=== PATIENT | female | born 1980 | race Caucasian/White ===

== ENCOUNTER 2016-09-05 11:46 | Emergency (ER) | payer OTHER ==
[~2016-09-05] VITALS: Ht 154.9 cm; Wt 66.0 kg
[2016-09-05] MEDS ORDERED: IBUP100T53 PO (12:12)
[2016-09-05 12:22] LABS: APPEARANCE,URINE CLOUDY (CLEAR); GLUCOSE, URINE (UA) NEGATIVE (NEGATIVE); KETONES,URINE NEGATIVE (NEGATIVE); LEUKOCYTE ESTERASE ,URINE SMALL (NEGATIVE); OCCULT BLOOD,URINE NEGATIVE (NEGATIVE); PROTEIN,URINE NEGATIVE (NEGATIVE)
[2016-09-05 12:25] LABS: ADD UA MICROSCOPIC YES
[2016-09-05 12:27] LABS: RBC,URINE None Seen /HPF (0-2)
[2016-09-05 12:28] LABS: SQUAMOUS EPITHELIAL CELL,UR Rare /LPF (None Seen)
[2016-09-05 12:38] LABS: BASOPHILS % (AUTO) 0.5 % (0.0-2.0); HEMATOCRIT 38.2 % (36-46); LYMPHOCYTES # (AUTO) 0.5 K/uL (1.0-4.8); LYMPHOCYTES % (AUTO) 8.1 % (22.0-44.0); MEAN CORPUSCULAR HEMOGLOBIN 30.8 pg (26.0-34.0); MEAN CORPUSCULAR VOLUME 91 fL (80-100); MONOCYTES # (AUTO) 0.5 K/uL (0.1-1.0); MONOCYTES % (AUTO) 8.6 % (2.0-9.0); NEUTROPHILS % (AUTO) 81.8 % (40.0-70.0); PLATELET COUNT (AUTO) 232 K/uL (150-450); RED BLOOD CELL COUNT(AUTO) 4.22 MIL/uL (4.00-5.20); RED CELL DISTRIBUTION WIDTH 13.1 % (11.5-14.5); WHITE BLOOD COUNT (AUTO) 6.1 K/uL (4.5-11.0)
[2016-09-05] MEDS ORDERED: ACETAMINOPHEN 500 MG TABLET PO ONE (12:45)
[2016-09-05] MEDS ORDERED: MORPHINE SULFATE 4 MG/ML SYRINGE IVP ONE (12:45)
[2016-09-05] MEDS ORDERED: SODIUM CHLORIDE 0.9% 1,000 ML IV ONE (12:45)
[2016-09-05 12:47] LABS: ANION GAP 10 mmol/L (8-16); CALCIUM, TOTAL 8.1 mg/dL (8.8-10.5); CARBON DIOXIDE 24 mmol/L (22-29); CHLORIDE 103 mmol/L (98-107); CREATININE 0.53 mg/dL (0.60-1.30); GLOMERULAR FILTR. RATE CALC > 60 mL/min (>60); POTASSIUM 3.4 mmol/L (3.5-5.1); SODIUM SERUM 137 mmol/L (136-145); UREA NITROGEN, BLOOD 8 mg/dL (7-18)
[2016-09-05 12:53] LABS: ALANINE AMINOTRANSFERASE 24 U/L (12-78); ALBUMIN 3.3 g/dL (3.4-5.0); ASPARTATE AMINOTRANSFERASE 13 U/L (15-37); BILIRUBIN,TOTAL 0.2 mg/dL (0.1-1.0); TOTAL PROTEIN, SERUM 6.8 g/dL (6.4-8.2)
[2016-09-05] MEDS ORDERED: ONDANSETRON HCL 4 MG/2 ML VIAL IVP ONE (13:00)
[2016-09-05] MEDS ORDERED: POTASSIUM CHLORIDE 20 MEQ ER TABLET PO ONE (13:15)
[2016-09-05 14:03] VITALS: BP 116/69
[2016-09-05 14:06] LABS: INFLUENZA TYPE B NEGATIVE FOR TYPE B (NEGATIVE)
[2016-09-05] MEDS ORDERED: KETOROLAC TROMETHAMINE 30 MG/ML VIAL IVP ONE (14:30)
== END 2016-09-05 15:32 | disposition home or self-care (01) ==
LOC: EMS 11:47
DX: B34.9 Viral infection, unspecified (principal); M54.9 Dorsalgia, unspecified
CPT/HCPCS: 36415; 80053; 81001; 84703; 85025; 87804; 96361; 96374; 96375; 99285; J1885; J2270; J2405; J7030

== ENCOUNTER 2017-01-16 12:51 | Emergency (ER) | payer OTHER ==
[~2017-01-16] VITALS: Ht 154.9 cm; Wt 68.6 kg
[~2017-01-16 12:51] MED LIST: IBUP100T53 PO
[2017-01-16] MEDS ORDERED: DEXAMETHASONE SOD PHOS 4 MG/ML 5 ML VIAL IM ONE (15:15)
[2017-01-16] MEDS ORDERED: DiphenhydrAMINE HCL 25 MG CAPSULE PO ONE (15:15)
[2017-01-16 16:26] VITALS: BP 127/86
[2017-01-17] MEDS ORDERED: DIPH25 PO (23:02)
== END 2017-01-16 16:45 | disposition home or self-care (01) ==
LOC: EMS 12:52
DX: L23.9 Allergic contact dermatitis, unspecified cause (principal); L29.9 Pruritus, unspecified
CPT/HCPCS: 96372; 99283; J1100

== ENCOUNTER 2017-01-17 22:48 | Emergency (ER) | payer OTHER ==
[~2017-01-17] VITALS: Ht 154.9 cm; Wt 68.2 kg
[2017-01-17] MEDS ORDERED: DIPH25 PO (23:02)
[2017-01-17] MEDS ORDERED: DiphenhydrAMINE HCL 25 MG CAPSULE PO ONE (23:45)
[2017-01-17 23:58] VITALS: BP 115/65
== END 2017-01-18 | disposition home or self-care (01) ==
LOC: EMS 22:49
DX: B86 Scabies (principal)
CPT/HCPCS: 99282

== ENCOUNTER 2018-12-28 09:54 | Emergency (ER) | payer OTHER ==
[~2018-12-28] VITALS: Ht 154.9 cm; Wt 65.9 kg
[~2018-12-28 09:54] MED LIST changes: +DIPH25 PO; -IBUP100T53 PO
[2018-12-28] MEDS ORDERED: SODIUM CHLORIDE 0.9% 1,000 ML IV ONE (10:45)
[2018-12-28] MEDS ORDERED: KETOROLAC TROMETHAMINE 30 MG/ML VIAL IVP ONE (10:45)
[2018-12-28] MEDS ORDERED: ONDANSETRON HCL 4 MG/2 ML VIAL IVP ONE (10:45)
[2018-12-28 11:20] LABS: BASOPHILS % (AUTO) 0.8 % (0.0-2.0); EOSINOPHILS % (AUTO) 0.7 % (1.0-6.0); HEMATOCRIT 42.4 % (36-46); HEMOGLOBIN 14.5 g/dL (12.0-16.0); LYMPHOCYTES # (AUTO) 1.1 K/uL (1.0-4.8); LYMPHOCYTES % (AUTO) 17.6 % (22.0-44.0); MEAN CORPUSCULAR HEMOGLOBIN 31.2 pg (26.0-34.0); MEAN CORPUSCULAR HGB CONC 34.2 G/dL (31.0-37.0); MEAN CORPUSCULAR VOLUME 91 fL (80-100); MONOCYTES # (AUTO) 0.9 K/uL (0.1-1.0); MONOCYTES % (AUTO) 13.7 % (2.0-9.0); NEUTROPHILS # (AUTO) 4.2 K/uL (1.8-7.7); NEUTROPHILS % (AUTO) 67.2 % (40.0-70.0); PLATELET COUNT (AUTO) 246 K/uL (150-450); RED BLOOD CELL COUNT(AUTO) 4.65 MIL/uL (4.00-5.20); RED CELL DISTRIBUTION WIDTH 13.8 % (11.5-14.5)
[2018-12-28 11:30] LABS: ANION GAP 6 mmol/L (8-16); CALCIUM, TOTAL 8.7 mg/dL (8.8-10.5); CARBON DIOXIDE 29 mmol/L (22-29); CHLORIDE 103 mmol/L (98-107); CREATININE 0.62 mg/dL (0.60-1.30); GLOMERULAR FILTR. RATE CALC > 60 mL/min (>60); GLUCOSE,RANDOM 87 mg/dL (70-110); POTASSIUM 3.8 mmol/L (3.5-5.1); SODIUM SERUM 138 mmol/L (136-145); UREA NITROGEN, BLOOD 10 mg/dL (7-18)
[2018-12-28 11:44] LABS: HCG,QUANTITATIVE < 1 mIU/mL (0-6)
[2018-12-28 11:51] LABS: INFLUENZA TYPE A NEGATIVE FOR TYPE A (NEGATIVE); INFLUENZA TYPE B NEGATIVE FOR TYPE B (NEGATIVE)
[2018-12-28 12:29] LABS: BILIRUBIN,URINE NEGATIVE (NEGATIVE); GLUCOSE, URINE (UA) NEGATIVE (NEGATIVE); KETONES,URINE TRACE mg/dL (NEGATIVE); LEUKOCYTE ESTERASE ,URINE NEGATIVE (NEGATIVE); NITRATE,URINE NEGATIVE (NEGATIVE); OCCULT BLOOD,URINE TRACE (NEGATIVE); PROTEIN,URINE NEGATIVE (NEGATIVE); UROBILINOGEN,URINE 0.2 mg/dL (<=1.0)
[2018-12-28 12:36] LABS: APPEARANCE,URINE SLIGHTLY CLOUDY (CLEAR)
[2018-12-28 12:37] LABS: BACTERIA,URINE None Seen /HPF (None Seen); RBC,URINE 0-2 /HPF (0-2); SQUAMOUS EPITHELIAL CELL,UR Many /LPF (None Seen); WBC,URINE None Seen /HPF (0-5)
[2018-12-28 12:57] VITALS: BP 99/62
== END 2018-12-28 13:00 | disposition home or self-care (01) ==
LOC: EMS 09:57
DX: J11.1 Influenza due to unidentified influenza virus with other respiratory manifestations (principal); R11.2 Nausea with vomiting, unspecified; M79.10 Myalgia, unspecified site; R07.89 Other chest pain; R51 Headache
CPT/HCPCS: 36415; 71045; 80048; 81001; 84702; 85025; 87804; 96361; 96374; 96375; 99284; J1885; J2405; J7030

== ENCOUNTER 2019-06-19 22:09 | Emergency (ER) | payer OTHER ==
[~2019-06-19] VITALS: Ht 154.9 cm; Wt 59.1 kg
[2019-06-20 02:01] LABS: EOSINOPHILS % (AUTO) 3.1 % (1.0-6.0); HEMATOCRIT 40.3 % (36-46); HEMOGLOBIN 13.5 g/dL (12.0-16.0); LYMPHOCYTES # (AUTO) 2.6 K/uL (1.0-4.8); LYMPHOCYTES % (AUTO) 30.2 % (22.0-44.0); MEAN CORPUSCULAR HEMOGLOBIN 31.1 pg (26.0-34.0); MEAN CORPUSCULAR HGB CONC 33.6 G/dL (31.0-37.0); MEAN CORPUSCULAR VOLUME 93 fL (80-100); MONOCYTES # (AUTO) 0.8 K/uL (0.1-1.0); MONOCYTES % (AUTO) 9.1 % (2.0-9.0); NEUTROPHILS % (AUTO) 56.6 % (40.0-70.0); PLATELET COUNT (AUTO) 271 K/uL (150-450); RED BLOOD CELL COUNT(AUTO) 4.36 MIL/uL (4.00-5.20); RED CELL DISTRIBUTION WIDTH 13.7 % (11.5-14.5)
[2019-06-20 02:09] LABS: INR 0.9 (0.9-1.1); PROTHROMBIN TIME 9.6 SEC (9.4-11.6)
[2019-06-20 02:18] LABS: B-TYPE NATRIURETIC PEPTIDE 14 pg/mL (0-100)
[2019-06-20 02:20] LABS: ANION GAP 7 mmol/L (8-16); CALCIUM, TOTAL 8.3 mg/dL (8.8-10.5); CARBON DIOXIDE 28 mmol/L (22-29); CHLORIDE 104 mmol/L (98-107); CREATININE 0.57 mg/dL (0.60-1.30); GLOMERULAR FILTR. RATE CALC > 60 mL/min (>60); GLUCOSE,RANDOM 101 mg/dL (70-110); POTASSIUM 3.8 mmol/L (3.5-5.1); SODIUM SERUM 139 mmol/L (136-145); UREA NITROGEN, BLOOD 12 mg/dL (7-18)
[2019-06-20 02:46] LABS: ALANINE AMINOTRANSFERASE 22 U/L (12-78); ALBUMIN 3.5 g/dL (3.4-5.0); ALKALINE PHOSPHATASE 67 U/L (46-116); ASPARTATE AMINOTRANSFERASE 12 U/L (15-37); BILIRUBIN,TOTAL 0.4 mg/dL (0.1-1.0); CREATINE KINASE, TOTAL ONLY 124 U/L (26-192); HCG,QUANTITATIVE < 1 mIU/mL (0-6)
[2019-06-20 04:07] LABS: APPEARANCE,URINE CLOUDY (CLEAR); BILIRUBIN,URINE NEGATIVE (NEGATIVE); GLUCOSE, URINE (UA) NEGATIVE (NEGATIVE); KETONES,URINE NEGATIVE (NEGATIVE); LEUKOCYTE ESTERASE ,URINE MODERATE (NEGATIVE); NITRATE,URINE NEGATIVE (NEGATIVE); OCCULT BLOOD,URINE NEGATIVE (NEGATIVE); PROTEIN,URINE NEGATIVE (NEGATIVE); UROBILINOGEN,URINE 0.2 mg/dL (<=1.0)
[2019-06-20 04:21] LABS: BACTERIA,URINE Rare /HPF (None Seen); RBC,URINE None Seen /HPF (0-2); SQUAMOUS EPITHELIAL CELL,UR Many /LPF (None Seen)
[2019-06-20 05:51] VITALS: BP 123/70
== END 2019-06-20 06:08 | disposition home or self-care (01) ==
LOC: EMS 22:11
DX: N39.0 Urinary tract infection, site not specified (principal); R07.9 Chest pain, unspecified
CPT/HCPCS: 87086; 93005

== ENCOUNTER 2021-11-09 12:55 | Inpatient (IN) | payer OTHER ==
[~2021-11-09] VITALS: Ht 149.9 cm; Wt 61.4 kg
[2021-11-09] MEDS ORDERED: KETOROLAC TROMETHAMINE 30 MG/ML VIAL IVP ONE (13:30)
[2021-11-09] MEDS ORDERED: ONDANSETRON HCL 4 MG/2 ML VIAL IVP ONE (13:30)
[2021-11-09] MEDS ORDERED: SODIUM CHLORIDE 0.9% 1,000 ML IV ONE (13:30)
[2021-11-09 13:56] LABS: APPEARANCE,URINE TURBID (CLEAR); BILIRUBIN,URINE NEGATIVE (NEGATIVE); GLUCOSE, URINE (UA) >=1000 mg/dL (NEGATIVE); KETONES,URINE TRACE mg/dL (NEGATIVE); LEUKOCYTE ESTERASE ,URINE LARGE (NEGATIVE); NITRATE,URINE POSITIVE (NEGATIVE); OCCULT BLOOD,URINE LARGE (NEGATIVE); PH,URINE 6.5 (5.0-8.0); PROTEIN,URINE 100-200,SEE CONFIRM mg/dL (NEGATIVE); SPECIFIC GRAVITIY, URINE 1.018 (1.003-1.030); UROBILINOGEN,URINE <=1.0 mg/dL (<=1.0)
[2021-11-09] MEDS ORDERED: HYDROmorphone 2 MG/ML VIAL IVP ONE (14:00)
[2021-11-09 14:01] LABS: ANION GAP 13 mmol/L (8-16); CALCIUM, TOTAL 8.9 mg/dL (8.8-10.5); CARBON DIOXIDE 24 mmol/L (22-29); CHLORIDE 103 mmol/L (98-107); CREATININE 0.56 mg/dL (0.60-1.30); GLUCOSE,RANDOM 103 mg/dL (70-110); POTASSIUM 3.7 mmol/L (3.5-5.1); SODIUM SERUM 140 mmol/L (136-145); UREA NITROGEN, BLOOD 9 mg/dL (7-18)
[2021-11-09 14:04] LABS: BASOPHILS % (AUTO) 0.6 % (0.0-2.0); EOSINOPHILS % (AUTO) 2.3 % (1.0-6.0); HEMATOCRIT 39.2 % (36-46); HEMOGLOBIN 13.5 g/dL (12.0-16.0); LYMPHOCYTES # (AUTO) 1.6 K/uL (1.0-4.8); LYMPHOCYTES % (AUTO) 13.5 % (22.0-44.0); MEAN CORPUSCULAR HEMOGLOBIN 30.7 pg (26.0-34.0); MEAN CORPUSCULAR HGB CONC 34.4 G/dL (31.0-37.0); MEAN CORPUSCULAR VOLUME 89 fL (80-100); MONOCYTES # (AUTO) 1.2 K/uL (0.1-1.0); MONOCYTES % (AUTO) 9.9 % (2.0-9.0); NEUTROPHILS # (AUTO) 8.6 K/uL (1.8-7.7); NEUTROPHILS % (AUTO) 73.7 % (40.0-70.0); PLATELET COUNT (AUTO) 349 K/uL (150-450); RED BLOOD CELL COUNT(AUTO) 4.39 MIL/uL (4.00-5.20); RED CELL DISTRIBUTION WIDTH 13.8 % (11.5-14.5)
[2021-11-09 14:07] LABS: GLOMERULAR FILTR. RATE CALC > 60 mL/min (>60)
[2021-11-09 14:08] LABS: ALANINE AMINOTRANSFERASE 20 U/L (12-78); ALBUMIN 3.4 g/dL (3.4-5.0); ALKALINE PHOSPHATASE 63 U/L (46-116); ASPARTATE AMINOTRANSFERASE 12 U/L (15-37); BILIRUBIN,TOTAL 0.6 mg/dL (0.1-1.0); LIPASE 51 U/L (73-393)
[2021-11-09 14:13] LABS: BACTERIA,URINE Many /HPF (None Seen); RBC,URINE 51-100 /HPF (0-2); SULFOSALICYLIC ACID,URINE 3+ (Negative); WBC,URINE >100 /HPF (0-5)
[2021-11-09] MEDS ORDERED: CefTRIAXone 1 GM/DEXTROSE 50 ML IV ONE (14:30)
[2021-11-09] MEDS ORDERED: GENTAMICIN SULFATE 160 MG in DEXTROSE 5%-WATER 100 ML IV ONE (14:30)
[2021-11-09] MEDS ORDERED: PHENAZOPYRIDINE HCL 100 MG TABLET PO ONE (14:30)
[2021-11-09] MEDS ORDERED: MAGNESIUM HYDROXIDE SUSPENSION 30 ML UDCUP PO PRN (16:15)
[2021-11-09] MEDS ORDERED: FentaNYL CITRATE PF 100 MCG/2 ML VIAL IVP ONE (16:15)
[2021-11-09] MEDS ORDERED: MORPHINE SULFATE 2 MG/ML SYRINGE IVP PRN (16:15)
[2021-11-09] MEDS ORDERED: ACETAMINOPHEN 325 MG TABLET PO PRN (16:15)
[2021-11-09 17:03] LABS: COVID AG,FIA SOURCE NASAL SWAB
[2021-11-09 19:05] VITALS: BP 97/51
[2021-11-09 19:40] VITALS: BP 91/60
[2021-11-09] MEDS: OxyCODONE HCL/ACETAMINOPHEN 5-325 MG TABLET PO PRN (20:14)
[2021-11-09] MEDS: ONDANSETRON HCL 4 MG/2 ML VIAL IVP PRN (20:14)
[2021-11-10 04:25] VITALS: BP 99/63
[2021-11-10] MEDS: OxyCODONE HCL/ACETAMINOPHEN 5-325 MG TABLET PO PRN ×4 (07:33→23:27)
[2021-11-10 08:08] VITALS: BP 101/62
[2021-11-10] MEDS: FAMOTIDINE 20 MG TABLET PO SCH (08:58)
[2021-11-10] MEDS ORDERED: SODIUM CHLORIDE 0.9% 250 ML IV ONE (13:24)
[2021-11-10] MEDS: CefTRIAXone 1 GM/DEXTROSE 50 ML IV SCH (13:32)
[2021-11-10 16:18] VITALS: BP 128/83
[2021-11-10 20:33] VITALS: BP 99/62
[2021-11-10] MEDS: ONDANSETRON HCL 4 MG/2 ML VIAL IVP PRN (23:28)
[2021-11-11] MEDS: OxyCODONE HCL/ACETAMINOPHEN 5-325 MG TABLET PO PRN ×2 (04:14→12:38)
[2021-11-11 04:53] VITALS: BP 97/53
[2021-11-11 07:36] VITALS: BP 90/54
[2021-11-11] MEDS: FAMOTIDINE 20 MG TABLET PO SCH (08:19)
[2021-11-11] MEDS ORDERED: CIPR500T10 PO (13:29)
[2021-11-11] MEDS: CefTRIAXone 1 GM/DEXTROSE 50 ML IV SCH (13:54)
[2021-11-11 15:39] VITALS: BP 90/54
== END 2021-11-11 17:20 | disposition home or self-care (01) | DRG 463 ==
LOC: EMS 12:55 → 6S 17:53
PROVIDERS: ADMIT Internal Medicine; ATTEND Internal Medicine
DX: N12 Tubulo-interstitial nephritis, not specified as acute or chronic (principal); E86.0 Dehydration; Z20.822 Contact with and (suspected) exposure to COVID-19; N83.201 Unspecified ovarian cyst, right side; R31.9 Hematuria, unspecified; Z90.49 Acquired absence of other specified parts of digestive tract
CPT/HCPCS: 74176; 76700; 80053; 81001; 81002; 83690; 84703; 85025; 87086; 99285; J0696; J1170; J1580; J1885; J2270; J2405; J3010; J7030; J7050; J7060

== ENCOUNTER 2022-03-24 09:14 | Emergency (ER) | payer OTHER ==
[~2022-03-24] VITALS: Ht 154.9 cm; Wt 65.9 kg
[~2022-03-24 09:14] MED LIST changes: +CIPR500T10 PO; -DIPH25 PO
[2022-03-24] MEDS ORDERED: SODIUM CHLORIDE 0.9% 1,000 ML IV ONE ×2 (10:00→12:30)
[2022-03-24] MEDS ORDERED: ONDANSETRON HCL 4 MG/2 ML VIAL IVP ONE (10:00)
[2022-03-24 10:29] LABS: BASOPHILS % (AUTO) 0.8 % (0.0-2.0); EOSINOPHILS % (AUTO) 6.9 % (1.0-6.0); HEMATOCRIT 39.5 % (36-46); HEMOGLOBIN 13.6 g/dL (12.0-16.0); LYMPHOCYTES # (AUTO) 2.2 K/uL (1.0-4.8); LYMPHOCYTES % (AUTO) 28.3 % (22.0-44.0); MEAN CORPUSCULAR HEMOGLOBIN 30.8 pg (26.0-34.0); MEAN CORPUSCULAR HGB CONC 34.3 G/dL (31.0-37.0); MEAN CORPUSCULAR VOLUME 90 fL (80-100); MONOCYTES # (AUTO) 0.6 K/uL (0.1-1.0); MONOCYTES % (AUTO) 7.6 % (2.0-9.0); NEUTROPHILS # (AUTO) 4.3 K/uL (1.8-7.7); NEUTROPHILS % (AUTO) 56.4 % (40.0-70.0); PLATELET COUNT (AUTO) 284 K/uL (150-450); RED BLOOD CELL COUNT(AUTO) 4.41 MIL/uL (4.00-5.20)
[2022-03-24 10:38] LABS: ANION GAP 5 mmol/L (8-16); CALCIUM, TOTAL 8.9 mg/dL (8.8-10.5); CARBON DIOXIDE 28 mmol/L (22-29); CHLORIDE 105 mmol/L (98-107); CREATININE 0.54 mg/dL (0.60-1.30); GLUCOSE,RANDOM 91 mg/dL (70-110); POTASSIUM 3.4 mmol/L (3.5-5.1); SODIUM SERUM 138 mmol/L (136-145); UREA NITROGEN, BLOOD 11 mg/dL (7-18)
[2022-03-24 10:41] LABS: GLOMERULAR FILTR. RATE CALC > 60 mL/min (>60)
[2022-03-24 10:51] LABS: ALANINE AMINOTRANSFERASE 22 U/L (12-78); ALBUMIN 3.4 g/dL (3.4-5.0); ALKALINE PHOSPHATASE 52 U/L (46-116); ASPARTATE AMINOTRANSFERASE 13 U/L (15-37); BILIRUBIN,TOTAL 0.5 mg/dL (0.1-1.0); HCG,QUANTITATIVE 1 mIU/mL (0-6); LIPASE 76 U/L (73-393); TOTAL PROTEIN, SERUM 6.5 g/dL (6.4-8.2)
[2022-03-24] MEDS ORDERED: KETOROLAC TROMETHAMINE 30 MG/ML VIAL IVP ONE (11:00)
[2022-03-24] MEDS ORDERED: ACETAMINOPHEN 1000 MG/ISO-OSM 100 ML IV ONE (11:00)
[2022-03-24] MEDS ORDERED: MORPHINE SULFATE 2 MG/ML SYRINGE IVP ONE (12:30)
[2022-03-24] MEDS ORDERED: METOCLOPRAMIDE HCL 5 MG/ML 2 ML VIAL IVP ONE (12:30)
[2022-03-24] MEDS ORDERED: DiphenhydrAMINE HCL 50 MG/ML VIAL IVP ONE (12:30)
[2022-03-24] MEDS ORDERED: IBUP-2070 PO (13:31)
[2022-03-24] MEDS ORDERED: ONDA-104 PO (13:31)
[2022-03-24 13:45] VITALS: BP 107/68
== END 2022-03-24 13:49 | disposition home or self-care (01) ==
LOC: EMS 09:14
DX: N93.9 Abnormal uterine and vaginal bleeding, unspecified (principal); R10.30 Lower abdominal pain, unspecified; R51.9 Headache, unspecified
CPT/HCPCS: 99284; 96365; 96375; 96361; 80053; 83690; 84702; 85025; 86901; 36415; J1200; J1885; J2765; J2270; J2405; J7030; J0131

== ENCOUNTER 2022-12-21 16:05 | Emergency (ER) | payer OTHER ==
[~2022-12-21] VITALS: Ht 157.5 cm; Wt 65.9 kg
[~2022-12-21 16:05] MED LIST changes: -CIPR500T10 PO; +IBUP-1492 PO; +ONDA-104 PO
[2022-12-21] MEDS ORDERED: ACETAMINOPHEN 325 MG TABLET PO ONE (17:15)
[2022-12-21] MEDS ORDERED: SODIUM CHLORIDE 0.9% 1,000 ML IV ONE (17:15)
[2022-12-21] MEDS ORDERED: MAG HYDROX/AL HYDROX/SIMETH 30 ML SUSP UDCUP PO ONE (17:15)
[2022-12-21] MEDS ORDERED: KETOROLAC TROMETHAMINE 30 MG/ML VIAL IVP ONE (17:15)
[2022-12-21] MEDS ORDERED: ONDANSETRON HCL 4 MG/2 ML VIAL IVP ONE (17:15)
[2022-12-21] MEDS ORDERED: FAMOTIDINE 10 MG/ML 2 ML VIAL IVP ONE (17:15)
[2022-12-21 17:20] LABS: BASOPHILS % (AUTO) 0.8 % (0.0-2.0); EOSINOPHILS % (AUTO) 2.4 % (1.0-6.0); HEMOGLOBIN 13.7 g/dL (12.0-16.0); LYMPHOCYTES # (AUTO) 2.4 K/uL (1.0-4.8); LYMPHOCYTES % (AUTO) 28.4 % (22.0-44.0); MEAN CORPUSCULAR HGB CONC 33.4 G/dL (31.0-37.0); MEAN CORPUSCULAR VOLUME 93 fL (80-100); MONOCYTES # (AUTO) 0.6 K/uL (0.1-1.0); MONOCYTES % (AUTO) 7.5 % (2.0-9.0); NEUTROPHILS # (AUTO) 5.2 K/uL (1.8-7.7); NEUTROPHILS % (AUTO) 60.9 % (40.0-70.0); PLATELET COUNT (AUTO) 314 K/uL (150-450); RED BLOOD CELL COUNT(AUTO) 4.42 MIL/uL (4.00-5.20)
[2022-12-21 17:28] LABS: ANION GAP 8 mmol/L (8-16); CALCIUM, TOTAL 9.1 mg/dL (8.8-10.5); CARBON DIOXIDE 27 mmol/L (22-29); CHLORIDE 103 mmol/L (98-107); GLOMERULAR FILTR. RATE CALC > 60 mL/min (>60); GLUCOSE,RANDOM 96 mg/dL (70-110); POTASSIUM 3.5 mmol/L (3.5-5.1); SODIUM SERUM 138 mmol/L (136-145)
[2022-12-21 17:39] LABS: ALANINE AMINOTRANSFERASE 27 U/L (12-78); ALBUMIN 3.7 g/dL (3.4-5.0); ALKALINE PHOSPHATASE 63 U/L (46-116); ASPARTATE AMINOTRANSFERASE 18 U/L (15-37); BILIRUBIN,TOTAL 0.3 mg/dL (0.1-1.0); HCG,QUANTITATIVE < 1 mIU/mL (0-6); LIPASE 60 U/L (73-393); TOTAL PROTEIN, SERUM 7.2 g/dL (6.4-8.2)
[2022-12-21] MEDS ORDERED: SODIUM CHLORIDE 0.9% 100 ML ONE ×2 (18:16→23:07)
[2022-12-21] MEDS ORDERED: IOHEXOL 350 MG/ML 100 ML VIAL ONE ×2 (18:16→23:07)
[2022-12-21] MEDS ORDERED: MORPHINE SULFATE 2 MG/ML SYRINGE IVP ONE (19:00)
[2022-12-21 20:13] LABS: APPEARANCE,URINE CLEAR (CLEAR); BILIRUBIN,URINE NEGATIVE (NEGATIVE); GLUCOSE, URINE (UA) NEGATIVE (NEGATIVE); KETONES,URINE NEGATIVE (NEGATIVE); LEUKOCYTE ESTERASE ,URINE NEGATIVE (NEGATIVE); NITRATE,URINE NEGATIVE (NEGATIVE); OCCULT BLOOD,URINE NEGATIVE (NEGATIVE); PH,URINE 6.5 (5.0-8.0); PROTEIN,URINE NEGATIVE (NEGATIVE); UROBILINOGEN,URINE <=1.0 mg/dL (<=1.0)
[2022-12-21] MEDS ORDERED: MORPHINE SULFATE 4 MG/ML SYRINGE IVP ONE (22:15)
[2022-12-22 01:17] VITALS: BP 126/68
== END 2022-12-22 01:19 | disposition home or self-care (01) ==
LOC: EMS 16:06
DX: R10.13 Epigastric pain (principal); Z90.49 Acquired absence of other specified parts of digestive tract
CPT/HCPCS: 99285; 74177; 76705; 96374; 96375; 76830; 96361; 80053; 81003; 83690; 84702; 85025; 36415; 76856; 96376; J3490; J1885; J2270 ×2; J2405; Q9967; J7030; J7050

== ENCOUNTER 2023-05-24 17:35 | Emergency (ER) | payer OTHER ==
[~2023-05-24] VITALS: Ht 142.2 cm; Wt 72.7 kg
[2023-05-24 17:44] VITALS: BP 99/55; PULSE 64; RESP 18; TEMP 98.3
[2023-05-24] MEDS ORDERED: TETRACAINE HCL/PF 0.5% 4 ML OPHTHALMIC SOLUTION OU ONE (21:00)
[2023-05-24] MEDS ORDERED: TraMADol HCL 50 MG TABLET PO ONE (21:30)
[2023-05-24] MEDS ORDERED: TRAM-559 PO (21:58)
[2023-05-24] MEDS ORDERED: CARB1DRO24 OU (21:58)
== END 2023-05-24 22:09 | disposition still patient (30) ==
LOC: EMS 17:36
DX: H11.32 Conjunctival hemorrhage, left eye (principal); Z87.440 Personal history of urinary (tract) infections; Z90.49 Acquired absence of other specified parts of digestive tract
CPT/HCPCS: 99283

== ENCOUNTER 2024-05-21 19:45 | Emergency (ER) | payer SELFPAY ==
[~2024-05-21] VITALS: Ht 147.3 cm; Wt 65.9 kg
[~2024-05-21 19:45] MED LIST changes: +CYCL-448 PO; -ONDA-104 PO
[2024-05-21] MEDS ORDERED: ACET-2247 PO (19:58)
[2024-05-21 21:01] VITALS: BP 124/66; PULSE 70; RESP 20; TEMP 97.9; O2SAT 100
[2024-05-21] MEDS ORDERED: OXYC-38 PO (21:17)
[2024-05-21] MEDS: HYDROCODONE/ACETAMINOPHEN 5-325 MG TABLET PO ONE (21:17)
[2024-05-21] MEDS ORDERED: IBUP-1492 PO (21:17)
== END 2024-05-21 22:45 | disposition home or self-care (01) ==
LOC: EMS 19:45
DX: S93.401A Sprain of unspecified ligament of right ankle, initial encounter (principal); K76.0 Fatty (change of) liver, not elsewhere classified; Z87.440 Personal history of urinary (tract) infections; Z90.49 Acquired absence of other specified parts of digestive tract; X50.1XXA Overexertion from prolonged static or awkward postures, initial encounter; Y93.89 Activity, other specified; Y92.89 Other specified places as the place of occurrence of the external cause; Y99.8 Other external cause status
CPT/HCPCS: 99283